=== PATIENT | female | born 1960 | race Caucasian/White ===

== ENCOUNTER 2017-12-13 09:53 | Day surgery (SDC) | payer OTHER ==
[2017-12-05 15:54] VITALS: BMI 19.5
--- NOTE | 2017-12-07 09:04 | HP ---
Admitting History and Physical - Primary Care Physician PCP: Toan Ortega - Admission Chief Complaint: Left breast atypia and radial scar History of Present Illness: 56 year old postmenapausal female with family H/O breast cancer who was found to have architectual distortion in mid lateral left breast on screening mammogram. 09/2017. US negative. Stereotactic core bx 10/10/2017 showed small radial scar with focal pagetoid spread of atypical lobular hyperplasia left breast 12 to 1:00 region History Source: Patient Limitations to Obtaining History: No Limitations - Past Medical History Additional Past Medical History: allergies premature ovarian failure - Smoking History Smoking history: Former smoker Have you smoked in the past 12 months: No If you are a former smoker, when did you quit?: 1979 - Alcohol/Substance Use Hx Alcohol Use: Yes ([employer]) Home Medications - Allergies Allergies/Adverse Reactions: Allergies Allergy/AdvReac Type Severity Reaction Status Date / Time shellfish derived Allergy Severe ANAPHYLAXIS Verified 12/05/17 16:08 - Home Medications Home Medications: Ambulatory Orders Estrogens,Conjugated [Premarin -] 0.5 mg PO DAILY 12/05/17 Progesterone, Micronized [Progesterone] 100 mg PO DAILY 12/05/17 Family Disease History - Family Disease History Family Disease History: CA: Grandparent (mat GM breast ca 90//pat GM breast ca) , Mother (breast ca 60) Other Family History: mat aunt breast ca 55. mat [place] breast ca 70 Physical Examination Constitutional: Yes: Well Nourished Breast(s): Yes: Other (A cup breasts post bx changes left breast no palpable masses or adenopathy dense glandular tissue bilaterally) Problem List - Problems (1) Atypical lobular hyperplasia of left breast Code(s): N60.92 - UNSPECIFIED BENIGN MAMMARY DYSPLASIA OF LEFT BREAST Assessment/Plan Left breast wide excision mammogram needle localization
[2017-12-13] MEDS ORDERED: LIDOCAINE HCL 1%, 10 MG/ML (20ML VIAL) ONE ×2 (11:14→13:50)
[2017-12-13] MEDS ORDERED: MIDAZOLAM HCL 2 MG/2 ML SINGLE DOSE VIAL ONE (13:11)
[2017-12-13] MEDS ORDERED: PROPOFOL 20 ML ONE ×3 (13:32)
[2017-12-13] MEDS ORDERED: LIDOCAINE HCL/PF 2% SDV 5ML VIAL ONE (13:32)
[2017-12-13] MEDS ORDERED: BUPIVACAINE HCL/PF 2.5 MG/ML - 30 ML VIAL IJ ONE (14:23)
[2017-12-13] MEDS ORDERED: KETOROLAC TROMETHAMINE 30 MG/1 ML VIAL IVPUSH PRN (14:49)
[2017-12-13] MEDS ORDERED: ONDANSETRON 4 MG/2 ML VIAL IVPUSH PRN (14:49)
[2017-12-13] MEDS ORDERED: DEXTROSE 5%-0.45% SALINE 1,000 ML IV SCH (15:00)
[2017-12-13] MEDS ORDERED: ONDANSETRON 4 MG/2 ML VIAL ONE (15:16)
[2017-12-13] MEDS ORDERED: KETOROLAC TROMETHAMINE 30 MG/1 ML VIAL ONE (15:16)
[2017-12-13 16:09] VITALS: TEMP 97.5
[2017-12-13] MEDS ORDERED: oxyCODONE HCL 5 MG TABLET ONE (16:18)
[2017-12-13] MEDS ORDERED: oxyCODONE HCL 5 MG TABLET PO PRN ×2 (16:38)
[2017-12-13] MEDS ORDERED: LACTATED RINGERS SOLUTION 1,000 ML IV SCH (16:45)
[2017-12-13 17:10] VITALS: BP 102/64; PULSE 62
--- NOTE | 2017-12-13 17:12 | OP ---
DATE OF OPERATION: 12/13/2017 PREOPERATIVE DIAGNOSIS: Left breast radial scar with atypical lobular hyperplasia. POSTOPERATIVE DIAGNOSIS: Left breast radial scar with atypical lobular hyperplasia, await permanent section. PROCEDURE: Left breast wide excision with mammographic needle localization. ANESTHESIA: Local with IV sedation. SURGEON: Suzan Ortega MD RNFA: REJI Hutchinson COMPLICATIONS: None. Briefly, the patient is a 56-year-old, nulliparous, postmenopausal female of [place] descent with a family history with her mother who had breast cancer in her 50s and a maternal aunt and maternal great-aunt who had breast cancer. Her paternal grandmother had breast cancer in her 40s. The patient underwent a mammography showing some architectural distortion of the lateral aspect of the left breast, and ultrasound was negative. Stereotactic core biopsy performed on October 10, 2017, showed a radial scar with pagetoid spread and some atypical lobular hyperplasia. We had the slides reviewed here at [facility], and our pathologist did not feel there was any atypia, but the radial scar was seen. The patient is advised in undergoing a wide excision of this area with needle localization. She was brought in for the procedure today, on December 13, 2017. She had first undergone mammographic needle localization in radiology, then was brought to the holding area. In the holding area, site verification was made, and informed consent was obtained. She was brought into the operating room and laid on the OR table in a supine position. Venodynes were placed on the lower extremities. She did not receive any IV antibiotics given the small nature of the incision. She underwent IV sedation, and the left breast was sterilely prepped and draped in the usual fashion with the wire prepped in the field. Next, 1% lidocaine was given in a curvilinear fashion on the lateral aspect of the left breast. Curvilinear incision was made, and dissection was undertaken around the needle localization wire. The breast tissue was removed from around the tip of the wire, completely removed intact. It was oriented with a long lateral/short superior suture. Specimen radiograph did not initially show the clip in question. We sent a separate lateral margin which was along the needle localization track and placed a stitch marking the biopsy cavity side. Specimen radiographs showed removal of the clip in question in that specimen. Hemostasis was achieved. The breast parenchyma was reapproximated using 2-0 plain suture. The skin was closed using interrupted 3-0 deep dermal Vicryl suture and a running 4-0 subcuticular Biosyn suture. Mastisol and Steri-Strips were applied over the wound with a compressive dressing placed over this. The patient tolerated the procedure well, without difficulty, and was awake and alert at the end of the procedure and brought back to the postanesthesia care unit in stable condition. She will be discharged home the same day once discharge criteria are met. She is to follow up in the office in 1 week for a formal wound pathology check. SUZAN ORTEGA M.D. [id number]
--- NOTE | 2017-12-16 15:43 | PATH ---
Surgical Pathology Report Patient Name: PRANAV CHACKO [facility] [place]. Rec. #: [id number] /Age/Gender: 1960 (Age: 56) / F Account: [id number] Location: [facility] AMBULATORY Taken: 12/13/2017 Received: 12/13/2017 Reported: 12/16/2017 Physicians: Toan Ortega M.D. Specimen(s) Received A: LEFT BREAST WIDE EXCISION B: LEFT BREAST LATERAL MARGIN Clinical History Radial scar with ? Atypia Final Diagnosis A. BREAST, LEFT, WIDE EXCISION: ATYPICAL DUCTAL HYPERPLASIA (ADH), ATYPICAL LOBULAR HYPERPLASIA (ALH), SMALL RADIAL SCAR, COLUMNAR CELL CHANGE , CYSTIC APOCRINE METAPLASIA, USUAL DUCTAL HYPERPLASIA (UDH) AND ASSOCIATED CALCIFICATIONS. (SEE NOTE) Note: E-Cadherin immunostain (performed at [facility]) is negative in the foci of ALH, which supports lobular phenotype. B. BREAST, LEFT, LATERAL MARGIN, EXCISION: SMALL RADIAL SCAR, CYSTIC APOCRINE METAPLASIA, USUAL DUCTAL HYPERPLASIA (UDH) AND ASSOCIATED CALCIFICATIONS. PRIOR BIOPSY SITE CHANGES ARE PRESENT. Electronically Signed Karla Wilson M.D. Gross Description A. Received in formalin, labeled "left breast wide excision," is a 4.1 x 3.4 x 1.2 cm. daniel-yellow, irregular, portion of fibroadipose tissue. There is a needle localization wire separately received within the same container which appears to have detached from the specimen. There is a short suture marking the superior aspect and a long suture marking the lateral aspect, per the surgeon. There is no skin present. The specimen is inked as follows: superior and lateral blue; inferior green; medial yellow; anterior red; deep black. The specimen is serially sectioned from medial to lateral. Sectioning reveals multifocal firm white fibrous tissue. No definitive mass is identified. The specimen is entirely and sequentially submitted in 8 cassettes with the medial margin in cassette 1 and the lateral margin in cassette 8. Time to formalin fixation: 10 minutes Total formalin fixation time: Approximately 28 hours. B. Received in formalin labeled "left breast excision lateral margin," is a 3.2 x 2.2 x 1.1 cm portion of fibroadipose tissue with a suture presumably marking the biopsy cavity site. There is only one suture present, despite the indication on the requisition. The presumed new margin is inked blue and the specimen is serially sectioned. The specimen is entirely and sequentially submitted in 6 cassettes. 12/14/201712/14/2017
== END 2017-12-13 17:11 | disposition home or self-care (01) ==
LOC: FASU 09:53 → EDBD 11:30 → FASU 17:11
PROVIDERS: ATTEND Surgery Surgical Oncology
PROC: 0HBU0ZX Excision of Left Breast, Open Approach, Diagnostic (ICD-10-PCS; principal; 2017-12-13 13:47)
DX: N62 Hypertrophy of breast (principal); N60.12 Diffuse cystic mastopathy of left breast; N60.82 Other benign mammary dysplasias of left breast; N64.89 Other specified disorders of breast; N60.92 Unspecified benign mammary dysplasia of left breast; Z80.3 Family history of malignant neoplasm of breast; Z87.891 Personal history of nicotine dependence
CPT/HCPCS: 19281; 88307-TC; 88342-TC; 94760